=== PATIENT | female | born 1980 | race African-American/Black ===

== ENCOUNTER 2017-09-30 10:02 | Emergency (ER) | payer BC ==
[~2017-09-30] VITALS: Ht 152.4 cm; Wt 76.7 kg
[~2017-09-30 10:02] MED LIST: HYDR-971 PO; ORPH100T PO
[2017-09-30 11:33] LABS: BILIRUBIN,URINE NEGATIVE (NEG); GLUCOSE,URINE 500 mg/dL (NEG); NITRITE,URINE NEGATIVE (NEG); PH,URINE 6.5; PROTEIN,URINE >=300 mg/dL (NEG-TRACE); UROBILINOGEN,URINE 0.2 mg/dL (0.2 mg/dL)
--- NOTE | 2017-09-30 11:38 | PHYS DOC ---
Past Medical History Past Medical History: Diabetes-Type II, Hypertension Past Surgical History: , Other Additional Past Surgical Histo: D&C Alcohol Use: None Drug Use: None Adult General Chief Complaint Chief Complaint: CONSTIPATION HPI HPI Patient is a 37 year old female with a history of diabetes and hypertension presents the ED complaining of vomiting 4 days. Associated symptoms include abdominal pain and constipation. States the pain has been increasing. Describes the pain as sharp. Rates the pain as 8 out of 10. States the pain is intermittent. Has not had a bowel movement since Sunday. States she has not been able to take her blood pressure medicine because she can't keep anything down. Denies chest pain, shortness of breath, dizziness, weakness, headache, fever, blood in stool, palpitations. Review of Systems Review of Systems Constitutional: Denies fever or chills [] Eyes: Denies change in visual acuity, redness, or eye pain [] HENT: Denies nasal congestion or sore throat [] Respiratory: Denies cough or shortness of breath [] Cardiovascular: No additional information not addressed in HPI [] GI: Complains of abdominal pain and vomiting. Denies bloody stools or diarrhea [ ] : Denies dysuria or hematuria [] Musculoskeletal: Denies back pain or joint pain [] Integument: Denies rash or skin lesions [] Neurologic: Denies headache, focal weakness or sensory changes [] Endocrine: Denies polyuria or polydipsia [] All other systems were reviewed and found to be within normal limits, except as documented in this note. Current Medications Current Medications Current Medications Medications (Trade) Dose Ordered Sig/Abdelrahman Start Time Stop Time Status Last Admin Dose Admin Famotidine (Pepcid Vial) 20 mg 1X ONCE 09/30/17 14:15 09/30/17 14:23 DC Hydralazine HCl (Apresoline Inj) 10 mg 1X ONCE 09/30/17 12:45 09/30/17 12:46 DC 09/30/17 12:52 10 MG Info (Do NOT chart on this entry -- for MONITORING) 1 each PRN DAILY PRN 09/30/17 13:15 09/30/17 14:33 DC Iohexol (Omnipaque 300 Mg/ml) 75 ml 1X ONCE 09/30/17 13:15 09/30/17 13:16 DC 09/30/17 13:32 60 ML Morphine Sulfate 2 mg 1X ONCE 09/30/17 11:45 09/30/17 11:46 DC 09/30/17 12:56 2 MG Ondansetron HCl (Zofran) 4 mg 1X ONCE 09/30/17 11:45 09/30/17 11:46 DC 09/30/17 12:43 4 MG Allergies Allergies Allergies Coded Allergies Type Severity Reaction Last Updated Verified No Known Drug Allergies 10/15/16 No Physical Exam Physical Exam Constitutional: Well developed, well nourished, no acute distress, non-toxic appearance. [] HENT: Normocephalic, atraumatic, bilateral external ears normal, oropharynx moist, no oral exudates, nose normal. [] Eyes: PERRLA, EOMI, conjunctiva normal, no discharge. [] Neck: Normal range of motion, no tenderness, supple, no stridor. [] Cardiovascular:Heart rate regular rhythm, no murmur [] Lungs & Thorax: Bilateral breath sounds clear to auscultation [] Abdomen: Bowel sounds normal, soft, MILD DIFFUSE LOWER ABDOMINAL TENDERNESS. no masses, no pulsatile masses. [] Skin: Warm, dry, no erythema, no rash. [] Back: No tenderness, no CVA tenderness. [] Extremities: No tenderness, no cyanosis, no clubbing, ROM intact, no edema. [] Neurologic: Alert and oriented X 3, normal motor function, normal sensory function, no focal deficits noted. [] Psychologic: Affect normal, judgement normal, mood normal. [] Current Patient Data Vital Signs Vital Signs Date Time Temp Pulse Resp B/P (MAP) Pulse Ox O2 Delivery O2 Flow Rate FiO2 09/30/17 12:56 18 09/30/17 12:52 80 233/104 09/30/17 12:24 98.4 100 Room Air 98.4 Lab Values Laboratory Tests Test 09/30/17 10:48 09/30/17 10:58 09/30/17 12:40 Urine Color Yellow Urine Clarity Clear Urine pH 6.5 Urine Specific [place] 1.020 Urine Protein >=300 mg/dL (NEG-TRACE) Urine Glucose (UA) 500 mg/dL (NEG) Urine Ketones (Stick) Negative mg/dL (NEG) Urine Blood Moderate (NEG) Urine Nitrite Negative (NEG) Urine Bilirubin Negative (NEG) Urine Urobilinogen Dipstick 0.2 mg/dL (0.2 mg/dL) Urine Leukocyte Esterase Negative (NEG) Urine RBC 3-5 /HPF (0-2) Urine WBC 5-10 /HPF (0-4) Urine Squamous Epithelial Cells Many /LPF Urine Bacteria Many /HPF (0-FEW) POC Urine HCG, Qualitative Hcg negative (Negative) White Blood Count 8.1 x10^3/uL (4.0-11.0) Red Blood Count 3.88 x10^6/uL (3.50-5.40) Hemoglobin 10.4 g/dL (12.0-15.5) L Hematocrit 31.8 % (36.0-47.0) L Mean Corpuscular Volume 82 fL (79-100) Mean Corpuscular Hemoglobin 27 pg (25-35) Mean Corpuscular Hemoglobin Concent 33 g/dL (31-37) Red Cell Distribution Width 13.6 % (11.5-14.5) Platelet Count 511 x10^3/uL (140-400) H Sodium Level 137 mmol/L (136-145) Potassium Level 4.4 mmol/L (3.5-5.1) Chloride Level 103 mmol/L (98-107) Carbon Dioxide Level 28 mmol/L (21-32) Anion Gap 6 (6-14) Blood Urea Nitrogen 22 mg/dL (7-20) H Creatinine 1.5 mg/dL (0.6-1.0) H Estimated GFR (Cockcroft-Gault) 47.8 BUN/Creatinine Ratio 15 (6-20) Glucose Level 185 mg/dL (70-99) H Calcium Level 9.0 mg/dL (8.5-10.1) Total Bilirubin 0.1 mg/dL (0.2-1.0) L Aspartate Amino Transferase (AST) 15 U/L (15-37) Alanine Aminotransferase (ALT) 15 U/L (14-59) Alkaline Phosphatase 84 U/L (46-116) Creatine Kinase 219 U/L (26-192) H Creatine Kinase MB (Mass) 0.5 ng/mL (0.0-3.6) Creatine Kinase MB Relative Index 0.2 % (0-4) Troponin I Quantitative < 0.017 ng/mL (0.000-0.055) Total Protein 6.6 g/dL (6.4-8.2) Albumin 1.9 g/dL (3.4-5.0) L Albumin/Globulin Ratio 0.4 (1.0-1.7) L Lipase 98 U/L (73-393) Laboratory Tests 09/30/17 12:40 Laboratory Tests 09/30/17 12:40 EKG EKG []Normal sinus rhythm at 81 bpm. No STEMI. No acute ST-T wave changes. Radiology/Procedures Radiology/Procedures PROCEDURE: CT ABD PELV W/ IV CONTRST ONLY EXAM: CT abdomen and pelvis with contrast. HISTORY: 37-year-old female with lower abdominal pain, right lower quadrant pain for 4 days worse today. TECHNIQUE: Computed tomographic images of the abdomen and pelvis are obtained following the intravenous demonstration of 60 cc of Omni 300. Multiplanar reformatting was performed. One or more of the following individualized dose reduction techniques were utilized for this examination: 1. Automated exposure control 2. Adjustment of the mA and/or kV according to patient size 3. Use of iterative reconstruction technique COMPARISON: None. FINDINGS: Bibasilar atelectasis is present. The liver, gallbladder, spleen, pancreas, adrenal glands, and kidneys demonstrate no focal abnormality. No nephrolithiasis or hydronephrosis is present. A couple small splenules are present along the anterior superior spleen. GI tract demonstrates no dilated bowel loops to suggest obstruction. Appendix is well visualized in the right lower quadrant, normal in caliber without adjacent inflammatory changes. Formed fecal material is present throughout most of the colon suggesting some degree of constipation. Rectosigmoid is mostly decompressed. Urinary bladder is unremarkable. Uterus and bilateral adnexa demonstrate no focal abnormality. No intra-abdominal or pelvic free fluid, free air or significant lymphadenopathy is seen. Abdominal aorta is normal in caliber with scattered atherosclerotic calcifications present. Overlying soft tissues and visualized osseous structures demonstrate no acute or suspicious finding. IMPRESSION: No acute intra-abdominal or pelvic process seen. Specifically, no evidence of appendicitis.[] Course & Med Decision Making Course & Med Decision Making Pertinent Labs and Imaging studies reviewed. (See chart for details) []Discussed labs and imaging. Patient's pain improved. Vital stable, no acute distress. Patient given hydralazine in the ED to improve her blood pressure. Patient states she has not been taking her blood pressure medicine. Discussed the importance of taking her blood pressure medicine. Patient states she has her blood pressure medicine in her purse and will begin taking it again. Discussed risks if patient does not take her blood pressure medicine.Patient verbalizes understanding. On re-examination, abdomen is soft nontender nondistended. No peritoneal signs. Tolerating by mouth. Discussed follow-up with PCP in one to 2 days. Provided contact information/education. Discussed reasons to return to the ED. Patient understands and agrees with plan. Dragon Disclaimer Dragon Disclaimer This electronic medical record was generated, in whole or in part, using a voice recognition dictation system. Departure Departure Impression: Primary Impression: Abdominal pain Disposition: HOME, SELF-CARE Condition: IMPROVED Referrals: UNKNOWN PCP NAME (PCP) SAVAGE HENNING MD, SCOTT S MD Patient Instructions: Abdominal Pain, Constipation, Adult Scripts Ondansetron (ZOFRAN ODT) 4 Mg Tab.rapdis 1 TAB SL Q8HRS, #10 TAB Prov: MATT CONNER 09/30/17 Polyethylene Glycol 3350 (MIRALAX) 17 Gm Powd.pack 1 PACKET PO DAILY, #30 PACKET 3 Refills Prov: MATT CONNER 09/30/17 MATT CONNER Sep 30, 2017 11:37
[2017-09-30 11:46] LABS: BACTERIA,URINE MANY /HPF (0-FEW)
[2017-09-30 11:47] LABS: SQUAMOUS EPITHELIAL CELL,UR MANY /LPF
--- NOTE | 2017-09-30 12:38 | RAD ---
CHEST AP ONLY Clinical Indication: RLQ tenderness Comparison: November 17, 2010 Technique: Upright portable frontal view of the chest is obtained. Findings: No focal consolidation, pleural effusion or pneumothorax is seen. Cardiomediastinal silhouette remains within normal limits of size. Visualized osseous structures and overlying soft tissues demonstrate no acute interval change. IMPRESSION: No focal consolidation or acute radiographic finding.
[2017-09-30] MEDS: ONDANSETRON PF 4 MG/2 ML VIAL. IV ONE (12:43)
[2017-09-30] MEDS: FAMOTIDINE 20 MG/2 ML VIAL IVP ONE ×2 (12:45→14:15)
[2017-09-30 12:52] VITALS: BP 233/104
[2017-09-30] MEDS: hydrALAZINE 20 MG/ML VIAL. IVP ONE (12:52)
[2017-09-30 12:56] LABS: HEMATOCRIT 31.8 % (36.0-47.0); HEMOGLOBIN 10.4 g/dL (12.0-15.5); RED BLOOD COUNT 3.88 x10^6/uL (3.50-5.40); RED CELL DISTRIBUTION WIDTH 13.6 % (11.5-14.5); WHITE BLOOD COUNT 8.1 x10^3/uL (4.0-11.0)
[2017-09-30] MEDS: MORPHINE SULFATE 2 MG/ML DISP.SYRIN. IV ONE (12:56)
[2017-09-30 13:05] LABS: CREATININE 1.5 mg/dL (0.6-1.0); GFR 47.8; POTASSIUM 4.4 mmol/L (3.5-5.1)
[2017-09-30 13:11] LABS: ALBUMIN 1.9 g/dL (3.4-5.0); ALBUMIN/GLOBULIN RATIO 0.4 (1.0-1.7); TOTAL BILIRUBIN 0.1 mg/dL (0.2-1.0); TOTAL PROTEIN 6.6 g/dL (6.4-8.2)
[2017-09-30] MEDS ORDERED: CONTRAST GIVEN MC PRN (13:15)
[2017-09-30 13:19] LABS: CKMB MASS 0.5 ng/mL (0.0-3.6)
[2017-09-30] MEDS: IOHEXOL 300 MG/ML 100ML VIAL. IV ONE (13:32)
--- NOTE | 2017-09-30 14:04 | RAD ---
EXAM: CT abdomen and pelvis with contrast. HISTORY: 37-year-old female with lower abdominal pain, right lower quadrant pain for 4 days worse today. TECHNIQUE: Computed tomographic images of the abdomen and pelvis are obtained following the intravenous demonstration of 60 cc of Omni 300. Multiplanar reformatting was performed. One or more of the following individualized dose reduction techniques were utilized for this examination: 1. Automated exposure control 2. Adjustment of the mA and/or kV according to patient size 3. Use of iterative reconstruction technique COMPARISON: None. FINDINGS: Bibasilar atelectasis is present. The liver, gallbladder, spleen, pancreas, adrenal glands, and kidneys demonstrate no focal abnormality. No nephrolithiasis or hydronephrosis is present. A couple small splenules are present along the anterior superior spleen. GI tract demonstrates no dilated bowel loops to suggest obstruction. Appendix is well visualized in the right lower quadrant, normal in caliber without adjacent inflammatory changes. Formed fecal material is present throughout most of the colon suggesting some degree of constipation. Rectosigmoid is mostly decompressed. Urinary bladder is unremarkable. Uterus and bilateral adnexa demonstrate no focal abnormality. No intra-abdominal or pelvic free fluid, free air or significant lymphadenopathy is seen. Abdominal aorta is normal in caliber with scattered atherosclerotic calcifications present. Overlying soft tissues and visualized osseous structures demonstrate no acute or suspicious finding. IMPRESSION: No acute intra-abdominal or pelvic process seen. Specifically, no evidence of appendicitis.
--- NOTE | 2017-09-30 14:06 | EKG ---
[facility] [address] [place] [address] Test Date: 2017-09-30 Test Time: 12:28:51 Pat Name: MEME HUERTA Department: Room: Gender: F Security System Administrator: DAHLIA : [id number] Requested By: MATT CONNER Order Number: [id number] Reading MD: Measurements Intervals [place] Rate: 81 P: 32 [place]: 144 QRS: -6 QRSD: 74 T: 132 QT: 362 QTc: 421 Interpretive Statements SINUS RHYTHM LEFTWARD AXIS T ABNORMALITY IN HIGH LATERAL LEADS ABNORMAL ECG RI6.01 No previous ECG available for comparison
[2017-09-30] MEDS ORDERED: POLY17PO29 PO (14:11)
[2017-09-30] MEDS ORDERED: ONDA4TAB10 SL (14:13)
== END 2017-09-30 14:33 | disposition home or self-care (01) ==
LOC: ER 10:02
DX: R10.84 Generalized abdominal pain (principal); R11.10 Vomiting, unspecified; K59.00 Constipation, unspecified; I10 Essential (primary) hypertension; E11.9 Type 2 diabetes mellitus without complications
CPT/HCPCS: 36415; 71010; 74177; 80053; 81001; 81025; 82553; 83690; 84484; 85027; 93005; 96374; 96375; 99285; J0360; J2270; J2405; Q9967; S0028; 99284-25

== ENCOUNTER 2017-11-02 16:30 | Emergency (ER) | payer BC ==
[2017-11-02] MEDS: cloNIDine HCL 0.1 MG TABLET PO (18:00)
[2017-11-02 18:07] LABS: ADD MAN DIFF? NO
[2017-11-02 18:10] LABS: BASO % 1 % (0-3); EOS # 0.1 x10^3/uL (0.0-0.7); EOS % 2 % (0-3); LYMPH # 2.4 x10^3/uL (1.0-4.8); LYMPH % 31 % (24-48); MEAN CORPUSCULAR HEMOGLOBIN 27 pg (25-35); MEAN CORPUSCULAR HGB CONC 32 g/dL (31-37); MEAN CORPUSCULAR VOLUME 83 fL (79-100); MONO # 0.4 x10^3/uL (0.0-1.1); MONO % 6 % (0-9); NEUT # 4.6 x10^3uL (1.8-7.7); NEUT % 61 % (31-73); PLATELET COUNT 449 x10^3/uL (140-400); RED BLOOD COUNT 3.38 x10^6/uL (3.50-5.40); RED CELL DISTRIBUTION WIDTH 14.1 % (11.5-14.5); WHITE BLOOD COUNT 7.6 x10^3/uL (4.0-11.0)
[2017-11-02 18:24] LABS: ANION GAP 11 (6-14); BLOOD UREA NITROGEN 27 mg/dL (7-20); BUN/CREATININE RATIO 17 (6-20); CALCIUM 8.4 mg/dL (8.5-10.1); CARBON DIOXIDE 21 mmol/L (21-32); CHLORIDE 104 mmol/L (98-107); CREATININE 1.6 mg/dL (0.6-1.0); GFR 44.4; GLUCOSE 201 mg/dL (70-99); POTASSIUM 4.3 mmol/L (3.5-5.1); SODIUM 136 mmol/L (136-145)
[2017-11-02 18:30] LABS: ALBUMIN 2.1 g/dL (3.4-5.0); ALBUMIN/GLOBULIN RATIO 0.5 (1.0-1.7); ALK PHOS 85 U/L (46-116); ALT (SGPT) 16 U/L (14-59); AST (SGOT) 16 U/L (15-37); TOTAL PROTEIN 6.6 g/dL (6.4-8.2)
[2017-11-02 18:33] LABS: TOTAL BILIRUBIN < 0.1 mg/dL (0.2-1.0)
== END 2017-11-02 20:16 | disposition home or self-care (01) ==
LOC: ER 16:30
DX: I10 Essential (primary) hypertension (principal); E11.9 Type 2 diabetes mellitus without complications; Z86.73 Personal history of transient ischemic attack (TIA), and cerebral infarction without residual deficits
CPT/HCPCS: 36415; 70450; 80053; 85025; 93005; 99285-25